=== PATIENT | male | born 2005 | race Caucasian/White ===

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

== ENCOUNTER 2025-06-15 11:21 | Outpatient (AMB) | payer BC, MEDICAID, SELFPAY ==
--- NOTE | 2025-06-15 11:28 | A.OFFPC_ITS ---
Vital Signs 06/15/25 12:15 Height 6 ft Weight 260 lb BMI 35.3 BP 118/76 Blood Pressure Location Lt brachial Position Sitting Pulse 86 Pulse Source Pulse Oximeter Pulse Oximetry (%) 98 Intake Visit Reasons: PE ok per OM Instrument Panel Assembler Required: No Accompanied by: Father Allergies ibuprofen (From MOTRIN) Allergy (Severe, Verified 06/15/25 12:43) THROAT SWELLING cat dander (CATS) Allergy (Unknown, Verified 06/15/25 12:43) RASH DAIRY PRODUCTS Allergy (Unknown, Uncoded 06/15/25 12:43) RASH Medication List - Last Reconciled 06/15/25 by Kimberli Lang MD albuterol sulfate 90 mcg/actuation 2 puffs inhalation Q6H PRN Tobacco use date assessed: 06/15/25 Dental Screening Dental Screen Date: 06/15/25 Did you have a dental visit in the last 12 months?: Yes Did you have a dental problem in the last 6 months where you did not have access to dental care?: No Was dental information given to patient?: Patient has dentist [facility] Medical History (Updated 06/15/25 @ 12:47 by Kimberli Lang MD) Hx of attention deficit hyperactivity disorder Mild intermittent asthma Surgical History (Updated 06/15/25 @ 12:44 by Kimberli Lang MD) 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 No pertinent past surgical history Family History (Updated 06/15/25 @ 12:54 by Kimberli Lang MD) Father Diabetes HTN (hypertension) Hypercholesterolemia Mother Diabetes HTN (hypertension) Hypercholesterolemia Bipolar disorder Social History (Updated 06/15/25 @ 12:57 by Kimberli Lang MD) Alcohol intake: current Alcohol intake frequency: a few times a month Patient Tobacco Use Status: Current everyday Tobacco user Tobacco use type: Smokeless Tobacco e-Cigarette/Vaping Use: Currently Using Second Hand Smoke Exposure: Yes Substance Use Type: Marijuana service: No Questionnaire PHQ-9 Over the last 2 weeks, how often have you been bothered by any of the following problems? 1. Little interest or pleasure in doing things: not at all 2. Feeling down, depressed, or hopeless: not at all 3. Trouble falling or staying asleep, or sleeping too much: nearly every day 4. Feeling tired or having little energy: not at all 5. Poor appetite or overeating: several days 6. Feeling bad about yourself - or that you are a failure or have let yourself or your family down: not at all 7. Trouble concentrating on things, such as reading the newspaper or watching television: not at all 8. Moving or speaking so slowly that other people could have noticed. Or the opposite - being so fidgety or restless that you have been moving around a lot more than usual: more than half the days 9. Thoughts that you would be better off or of hurting yourself in some way: not at all Total score: 6 Depression Screening Interpretation: Negative Depression Screening Done: Yes 67172 - PHQ-9 Billing: Yes Source: Developed by Drs. David Padilla, Saloni Joaquin, Martin Mccullough and colleagues, with an educational orlin from [employer]. Thrive Questionnaire Date Thrive assessed: 06/15/25 I am a: Patient What is your living situation today?: I have a steady place to live Within the past 12 months, did the food you bought not last and you didn't have the money to get more?: Sometimes True Within the past 12 months, did you worry whether your food would run out before you got money to buy more?: Sometimes True Do you have trouble paying for medicines?: No Do you have trouble getting transportation to medical appointments?: No Do you have trouble paying your heating and electricity bill?: No Do you have trouble taking care of your child, family member or friend?: No Do you have trouble with day-to-day activities such as bathing, preparing meals, shopping, managing finances, etc.?: No Are you currently unemployed and looking for a job?: No Are you interested in more education?: No Please select the resources that you would like help with: None Currently or been in a relationship where the following occur: No concerns reported THRIVE Score: 2 AUDIT C Alcohol Use Questionnaire (AUDIT-C) 1. How often do you have a drink containing alcohol?: Monthly or less 2. How many drinks containing alcohol do you have on a typical day when you are drinking?: 10 or more 3. How often do you have six or more drinks on one occasion?: Monthly Total Score: 7 Score Reviewed/Action Taken: Yes LUCERO-7 AMB Questionnaire LUCERO-7 Date LUCERO - 7 assessed: 06/15/25 Feeling nervous, anxious, or on edge: 0 = Not at all Not being able to stop or control worryin = Not at all Worrying too much about different things: 0 = Not at all Trouble relaxin = Several days Being so restless that it is hard to sit still: 1 = Several days Becoming easily annoyed or irritable: 1 = Several days Feeling afraid as if something awful might happen: 0 = Not at all Total LUCERO-7 score (0-4 normal; 5-9 mild; 10-14 moderate; 15-21 severe): 3 Source: Developed by Drs. David Padilla, Saloni Joaquin, Martin Mccullough and colleagues, with an educational orlin from [employer]. LUCERO-7 Assessment Billing LUCERO-7 Assessment Tool: LUCERO-7 Assessment 44782 Physical exam (Primary Care) Vital Signs: Last Vital Signs Pulse 86 06/15/25 12:15 BP 118/76 06/15/25 12:15 Pulse Ox 98 06/15/25 12:15 BMI result Body Mass Index 35.3 Tobacco/Smoking Status: Tobacco use Status Tobacco use date assessed 06/15/25 06/15/25 11:30 Patient Tobacco Use Status Current everyday Tobacco 06/15/25 12:57 Tobacco use type Smokeless Tobacco 06/15/25 12:57 e-Cigarette/Vaping Use Currently Using 06/15/25 12:57 PHQ-9: PHQ-9 Score PHQ-9: Total score 6 06/15/25 12:47 Depression Screening Interpretation: Negative Thrive Assessment: Date of Thrive Assessment Date Thrive assessed 06/15/25 06/15/25 12:00 Currently or been in a relationship where the following occur: No concerns reported Office Procedures Flu Questionnaire Does the patient have a severe egg allergy?: No Does the patient have severe life threatening allergies?: No Does the patient have a fever or illness today?: No Has the patient ever had Guillain-[place] Syndrome?: No Has the patient ever had any past reaction to a flu shot?: No Immunizations Fluarix [id number] (PF) 45 mcg (15 mcg x 3)/0.5 mL IM syringe Performing Provider: Kimberli Lang MD Performing Location: [facility] [place] [facility] Administered by: Damien Velasquez CMA on 06/15/25 12:58 Dose Route Admin Location Dispensed Lot Number Expiration Date NDC Cask Maker 0.5 mL IM Right Deltoid 0.5 mL [id number] 12/13/25 [id number] [employer] VIS Given Date VIS Provided VIS Publication Date 06/15/25 Single Vaccine 24 Eligibility Eligibility Date Funding Source Not [facility] Eligible 06/15/25 Private Coding Diagnoses Mild intermittent asthma J45.20 Encounter for screening for lipid disorder Z13.220 Annual visit for general adult medical examination with abnormal findings Z00.0 1 Additional Codes LUCERO-7 Assessment Billing - LUCERO-7 Assessment Tool: LUCERO-7 Assessment 39902 ([id number]) PHQ-9 - 01912 - PHQ-9 Billing: Yes ([id number]) Assessment & Plan Assessment & Plan (1) Mild intermittent asthma: Code(s): J45.20 - Mild intermittent asthma, uncomplicated Category: Medical (2) Encounter for screening for lipid disorder: Code(s): Z13.220 - Encounter for screening for lipoid disorders (3) Annual visit for general adult medical examination with abnormal findings: Code(s): Z00.01 - Encounter for general adult medical examination with abnormal findings Orders: Orders Influenza [id number] Immunization Today Z23 - Encounter for immunization Complete Blood Count Auto Diff Today J45.20 - Mild intermittent asthma, uncomplicated, Z00.01 - Encounter for general adult medical examination with abnormal findings, Z13.1 - Encounter for screening for diabetes mellitus, Z13.220 - Encounter for screening for lipoid disorders Comprehensive [place]. Panel Fast Today J45.20 - Mild intermittent asthma, uncomplicated, Z00.01 - Encounter for general adult medical examination with abnormal findings, Z13.1 - Encounter for screening for diabetes mellitus, Z13.220 - Encounter for screening for lipoid disorders Lipid Panel Today J45.20 - Mild intermittent asthma, uncomplicated, Z00.01 - Encounter for general adult medical examination with abnormal findings, Z13.1 - Encounter for screening for diabetes mellitus, Z13.220 - Encounter for screening for lipoid disorders Vitamin D 25-OH Total Today J45.20 - Mild intermittent asthma, uncomplicated, Z00.01 - Encounter for general adult medical examination with abnormal findings, Z13.1 - Encounter for screening for diabetes mellitus, Z13.220 - Encounter for screening for lipoid disorders
[2025-06-15 12:15] VITALS: BP 118/76; PULSE 86; O2SAT 98; BMI 35.3
== END 2025-06-15 13:10 | disposition home or self-care (01) ==
PROVIDERS: PCP Pediatrics; Visit Provider Internal Medicine
DX: Z23 Encounter for immunization (principal)

== ENCOUNTER → 2025-06-15 11:21 | Outpatient (BNVA) | payer BC, SELFPAY | PROVIDERS: PCP Pediatrics; Visit Provider Internal Medicine | DX: Z00.01 Encounter for general adult medical examination with abnormal findings (principal); J45.20 Mild intermittent asthma, uncomplicated; Z13.1 Encounter for screening for diabetes mellitus; Z13.220 Encounter for screening for lipoid disorders; Z83.3 Family history of diabetes mellitus; Z86.59 Personal history of other mental and behavioral disorders; F17.290 Nicotine dependence, other tobacco product, uncomplicated; Z82.49 Family history of ischemic heart disease and other diseases of the circulatory system; Z81.8 Family history of other mental and behavioral disorders; Z23 Encounter for immunization; Z13.31 Encounter for screening for depression; Z13.39 Encounter for screening examination for other mental health and behavioral disorders | CPT/HCPCS: 90471; 90656; 96127 ==